=== PATIENT | male | born 1995 | race Caucasian/White ===

== ENCOUNTER 2016-09-01 09:24 | Emergency (ER) | payer MEDICAID, OTHER ==
[2016-09-01 09:24] VITALS: BMI 21.1
[2016-09-01 09:30] VITALS: BP 121/80; PULSE 98; RESP 16; TEMP 98; O2SAT 99
--- NOTE | 2016-09-01 10:08 | ED PDOC ---
Arrival/HPI - General Chief Complaint: ENT Problem Time Seen by Provider: 09/01/16 09:56 Historian: Patient - History of Present Illness Narrative History of Present Illness (Text): 09/01/16 10:05 A 21 year old male presents to the emergency room for the evaluation of a swollen area under the left jaw for 2 weeks. Patient denies cough, congestion, URI, fever, chills, tooth ache, weight loss, or any other complaints. Patient notes the swollen area is non-tender and mobile. Patient states that he is a light smoker and denies a history of ETOH or drug use. Time/Duration: < month (2 weeks) Symptom Onset: Sudden Symptom Course: Unchanged Activities at Onset: Light Context: Home Associated Symptoms (Text): 09/01/16 10:21 Approximately 2 week history of the left submental mass. Mobile and nontender. No cough congestion or URI. No toothache. No sore throat. No weight loss. Never before. He has no other appreciable lymphadenopathy. Past Medical History - Provider Review Nursing Documentation Reviewed: Yes - Infectious Disease Hx of Infectious Diseases: None - Past Medical History Past Medical History: No Previous - Psychiatric Hx Substance Use: No - Past Surgical History Past Surgical History: No Previous - Anesthesia Hx Anesthesia: No - Suicidal Assessment Feels Threatened In Home Enviroment: No Family/Social History - Physician Review Nursing Documentation Reviewed: Yes Family/Social History: No Known Family HX Smoking Status: Current Some Days Smoker Hx Alcohol Use: No Hx Substance Use: No Allergies/Home Meds Allergies/Adverse Reactions: Allergies No Known Allergies Allergy (Verified 05/18/14 20:27) Review of Systems - Physician Review All systems were reviewed & negative as marked: Yes - Review of Systems Constitutional: absent: Fatigue, Weight Change, Fevers, Night Sweats, Other ( Chills) ENT: absent: Sinus Congestion, Other (Toothache) Respiratory: absent: SOB, Cough Gastrointestinal: absent: Abdominal Pain, Nausea, Vomiting Skin: Other (Swollen area under left jaw) Neurological: absent: Headache, Dizziness Physical Exam Vital Signs Reviewed: Yes Vital Signs Temp Pulse Resp BP Pulse Ox 09/01/16 09:28 98 F 98 H 16 121/80 99 Temperature: Afebrile Blood Pressure: Normal Pulse: Regular Respiratory Rate: Normal Appearance: Positive for: Well-Appearing, Non-Toxic, Comfortable Pain Distress: None Mental Status: Positive for: Alert and Oriented X 3 - Systems Exam Head: Present: Atraumatic, Normocephalic, Other (2 cm mobile non-tender mass at the left submental area. No erythema. No warmth) Pupils: Present: PERRL Extroacular Muscles: Present: EOMI Conjunctiva: Present: Normal Ears: Present: NORMAL TM. No: Erythema Mouth: Present: Moist Mucous Membranes, Normal Lips, Normal Tounge, Normal Teeth. No: Dry, Drooling Pharnyx: Present: Normal. No: ERYTHEMA, EXUDATE, TONSILS ENLARGED Nose (External): Present: Atraumatic Nose (Internal): No: Rhinorrhea, Epistaxis Neck: Present: Normal Range of Motion. No: MIDLINE TENDERNESS, Paraspinal Tenderness Respiratory/Chest: Present: Clear to Auscultation, Good Air Exchange. No: Respiratory Distress, Accessory Muscle Use Cardiovascular: Present: Tachycardic Abdomen: Present: Normal Bowel Sounds. No: Tenderness, Distention, Peritoneal Signs, Rebound, Guarding Back: No: CVA Tenderness, Midline Tenderness, Paraspinal Tenderness Upper Extremity: Present: Normal ROM. No: Tenderness, Swelling Lower Extremity: Present: Normal ROM. No: Tenderness, Swelling Neurological: Present: GCS=15, CN II-XII Intact, Speech Normal Skin: Present: Warm, Dry, Normal Color. No: Rashes Psychiatric: Present: Alert, Oriented x 3, Normal Insight, Normal Concentration Medical Decision Making ED Course and Treatment: 09/01/16 10:11 Impression: A 21 year old male with a swollen area under the left jaw for 2 weeks. 2 cm mobile non-tender mass at the left submental area found on PE. Plan: -- Reassess and disposition Progress Notes: 09/01/16 10:23 Patient instructed that he will need to follow-up in the clinic for ENT evaluation. Will try nonsteroidals. Possible salivary gland blockage or other more serious differential - Scribe Statement The provider has reviewed the documentation as recorded by the Enedina Bullock Provider Scribe Attestation: All medical record entries made by the Scribe were at my direction and personally dictated by me. I have reviewed the chart and agree that the record accurately reflects my personal performance of the history, physical exam, medical decision making, and the department course for this patient. I have also personally directed, reviewed, and agree with the discharge instructions and disposition. Disposition/Present on Arrival - Present on Arrival Any Indicators Present on Arrival: No History of DVT/PE: No History of Uncontrolled Diabetes: No Urinary Catheter: No History of Decub. Ulcer: No History Surgical Site Infection Following: None - Disposition Have Diagnosis and Disposition been Completed?: Yes Diagnosis: Salivary duct calculus Disposition: HOME/ ROUTINE Disposition Time: 10:25 Patient Plan: Discharge Condition: GOOD Discharge Instructions (ExitCare): Sialoadenitis (ED) Additional Instructions: Moist heat. Follow-up in the clinic. Follow up in the ER as needed. Prescriptions: Naproxen [Naprosyn] 500 mg PO BID #14 tab Referrals: [facility] [place] [facility] [place] - Follow up with primary
== END 2016-09-01 10:57 | disposition home or self-care (01) ==
LOC: ED 09:24
DX: K11.5 Sialolithiasis (principal); Z72.0 Tobacco use